=== PATIENT | female | born 2000 | race Hispanic/Latino ===

== ENCOUNTER 2020-01-21 09:49 | Emergency (ER) | payer BC ==
[~2020-01-21] VITALS: Ht 162.6 cm; Wt 95.2 kg
== END 2020-01-21 12:07 | disposition home or self-care (01) ==
LOC: ED 09:49
DX: R10.32 Left lower quadrant pain (principal)
CPT/HCPCS: 81001; 84703; 87088; 99284; A9270

== ENCOUNTER 2024-10-24 19:50 | Emergency (ER) | payer BC ==
[~2024-10-24] VITALS: Ht 162.6 cm; Wt 106.3 kg
[2024-10-24] MEDS ORDERED: LACTATED RINGER'S 1,000 ML IV ONE (20:30)
[2024-10-24] MEDS ORDERED: FAMOTIDINE 20 MG/ 2 ML VIAL IV ONE (20:30)
[2024-10-24] MEDS ORDERED: KETOROLAC TROMETHAMINE 30 MG/ML VIAL IV ONE (20:30)
[2024-10-24] MEDS ORDERED: ondansetron HCL 4 MG/2 ML VIAL IV ONE (20:30)
[2024-10-24 20:33] LABS: BASOPHILS 0.3 % (0.1-1.2); EOSINOPHILS 0.8 % (0.7-5.8); HEMATOCRIT 41.2 % (34.1-44.9); HEMOGLOBIN 13.7 g/dL (11.2-15.7); LYMPHOCYTES 13.4 % (19.3-51.7); MCH 29.3 PG (25.6-32.2); MCHC 33.3 g/dL (32.2-35.5); MONOCYTES 10.6 % (4.7-12.5); NEUTROPHILS 74.5 % (34.0-71.1); PLATELET COUNT 333 K/uL (182-369); RBC 4.68 M/uL (3.93-5.22)
[2024-10-24 20:51] LABS: BILIRUBIN, URINE NEGATIVE (negative); BLOOD/HGB, URINE TRACE-L (Negative); KETONE, URINE NEGATIVE (Negative); LEUK ESTERASE, URINE TRACE (negative); NITRITE, URINE NEGATIVE (negative); PH, URINE 6.5 (5-7)
[2024-10-24 20:55] LABS: ALBUMIN 3.5 g/dL (3.4-5.0); ALBUMIN/GLOBULIN RATIO 0.7 (1.1-2.4); ANION GAP 9.4 (7-21); BILIRUBIN, TOTAL 0.4 mg/dL (0.2-1.0); BUN/CREATININE RATIO 6.97 (6.0-28.6); CALCIUM 9.3 mg/dL (8.5-10.1); CREATININE, SERUM 0.86 mg/dL (0.55-1.02); POTASSIUM 3.4 mmol/L (3.5-5.1); PROTEIN, TOTAL 8.5 g/dL (6.4-8.2)
[2024-10-24 20:57] LABS: BACTERIA, URINE RARE /hpf (negative); CASTS, URINE NONE SEEN \\lpf; COLLECTION TYPE, URINE CLEAN CATCH; CRYSTALS, URINE NONE SEEN (0-1+); REFLEX CULTURE, URINE Yes (No)
[2024-10-24] MEDS ORDERED: NITROFURANTOIN MONOHYD MACROCR 100 MG HOME.PACK PO ONE (23:00)
[2024-10-24] MEDS ORDERED: MACROBID 100 M100 MG PO (23:03)
[2024-10-24 23:47] VITALS: BP 119/55
== END 2024-10-24 23:20 | disposition home or self-care (01) ==
LOC: ED 19:50
PROVIDERS: Internal Medicine
DX: N39.0 Urinary tract infection, site not specified (principal)
CPT/HCPCS: 36415; 80053; 81001; 83690; 84703; 85025; 87077; 87088; 87186; 96361; 96374; 96375; 99284-25; J1885; J2405; J7121